=== PATIENT | female | born 1950 | race African-American/Black ===

== ENCOUNTER 2020-05-03 01:17 | Observation (INO) ==
[2020-05-03] MEDS ORDERED: PIPERACILLIN/TAZOBACTAM 3,375 MG in SODIUM CHLORIDE 0.9% 100 ML IV STA (01:28)
[2020-05-03 02:24] LABS: Basophils % 0.3 % (0.0-0.8); Eosinophils % 0.6 % (0.00-10.9); Hematocrit 44.3 VOL% (35.7-47.0); Hemoglobin 14.4 GM/DL (12.0-16.0); Immature Granulocytes % 0.2 %; Immature Granulocytes Absolute 0.01 #; Lymphocytes # 0.9 10*3/uL (1.4-4.0); Lymphocytes % 14.1 % (21.3-54.2); Mean Corpuscular HGB Conc 32.5 GM/DL (32-36); Mean Corpuscular Volume 97.4 FL (87-102); Mean Platelet Volume 9.5 FL (9.6-12.0); Neutrophils % 74.8 % (38.7-73.9); Platelet Count 195 T/CUMM (130-400); Red Blood Count 4.55 MC/CUMM (3.8-5.5); Red Cell Distribution Width 13.7 % (9.3-17.3); White Blood Count 6.6 T/CUMM (4-12)
[2020-05-03 03:01] LABS: Albumin 3.8 G/DL (3.4-5.0); Bilirubin,Total 0.4 MG/DL (0.2-1.0); Calcium 9.9 MG/DL (8.5-10.1); Osmolality,Calculated 274.8 MOS/KG (273-304); Potassium 3.3 MMOL/L (3.5-5.1); Total Protein 7.4 G/DL (6.4-8.3)
[2020-05-03] MEDS ORDERED: HYDROmorphone 2 MG/1 ML VIAL IV PRN (04:27)
[2020-05-03] MEDS ORDERED: ACETAMINOPHEN 325 MG TABLET PO PRN (04:27)
[2020-05-03] MEDS ORDERED: PIPERACILLIN/TAZOBACTAM 3,375 MG in SODIUM CHLORIDE 0.9% 100 ML IV SCH (04:27)
[2020-05-03] MEDS: ONDANSETRON 4 MG/2 ML VIAL IV PRN ×2 (09:22→21:21)
[2020-05-03] MEDS: SODIUM CHLORIDE 0.9% 1,000 ML IV SCH ×2 (10:48→15:04)
[2020-05-03] MEDS ORDERED: PIPERACILLIN/TAZOBACTAM 3,375 MG VIAL IV ONE ×2 (11:47→11:49)
[2020-05-03] MEDS: PANTOPRAZOLE 40 MG VIAL IV SCH (12:01)
[2020-05-03] MEDS: PIPERACILLIN/TAZOBACTAM 3,375 MG in SODIUM CHLORIDE 0.9% 100 ML IV SCH ×2 (12:01→21:41)
[2020-05-03] MEDS: POTASSIUM CHLORIDE RIDER 10 MEQ in PREMIX 1 EACH IV PRN ×2 (17:54→23:56)
[2020-05-04] MEDS: POTASSIUM CHLORIDE RIDER 10 MEQ in PREMIX 1 EACH IV PRN ×5 (00:56→17:45)
[2020-05-04] MEDS: PIPERACILLIN/TAZOBACTAM 3,375 MG in SODIUM CHLORIDE 0.9% 100 ML IV SCH ×3 (05:19→20:05)
[2020-05-04 05:20] LABS: Basophils # 0.1 10*3/uL (0.0-0.2); Basophils % 0.6 % (0.0-0.8); Eosinophils % 0.1 % (0.00-10.9); Hematocrit 41.9 VOL% (35.7-47.0); Hemoglobin 13.8 GM/DL (12.0-16.0); Immature Granulocytes % 0.2 %; Immature Granulocytes Absolute 0.02 #; Lymphocytes # 0.8 10*3/uL (1.4-4.0); Lymphocytes % 9.5 % (21.3-54.2); Mean Corpuscular HGB Conc 32.9 GM/DL (32-36); Mean Corpuscular Volume 96.8 FL (87-102); Mean Platelet Volume 10.2 FL (9.6-12.0); Monocytes % 10.3 % (1.7-12.7); Neutrophils % 79.3 % (38.7-73.9); Platelet Count 171 T/CUMM (130-400); Red Blood Count 4.33 MC/CUMM (3.8-5.5); White Blood Count 8.1 T/CUMM (4-12)
[2020-05-04] MEDS: ONDANSETRON 4 MG/2 ML VIAL IV PRN ×3 (05:20→19:48)
[2020-05-04 05:45] LABS: Albumin 3.6 G/DL (3.4-5.0); Bilirubin,Total 1.1 MG/DL (0.2-1.0); Calcium 9.8 MG/DL (8.5-10.1); Osmolality,Calculated 279.5 MOS/KG (273-304); Potassium 3.4 MMOL/L (3.5-5.1); Total Protein 7.5 G/DL (6.4-8.3)
[2020-05-04] MEDS: SODIUM CHLORIDE 0.9% 1,000 ML IV SCH ×3 (06:20→19:52)
[2020-05-04] MEDS: PANTOPRAZOLE 40 MG VIAL IV SCH (08:08)
[2020-05-05] MEDS: PIPERACILLIN/TAZOBACTAM 3,375 MG in SODIUM CHLORIDE 0.9% 100 ML IV SCH ×3 (07:20→20:19)
[2020-05-05] MEDS: SODIUM CHLORIDE 0.9% 1,000 ML IV SCH ×2 (07:54→11:01)
[2020-05-05] MEDS: PANTOPRAZOLE 40 MG VIAL IV SCH (09:08)
[2020-05-06] MEDS: PIPERACILLIN/TAZOBACTAM 3,375 MG in SODIUM CHLORIDE 0.9% 100 ML IV SCH ×3 (05:35→20:39)
[2020-05-06] MEDS: SODIUM CHLORIDE 0.9% 1,000 ML IV SCH ×3 (08:01→20:41)
[2020-05-06] MEDS: PANTOPRAZOLE 40 MG VIAL IV SCH (08:02)
[2020-05-07] MEDS: PIPERACILLIN/TAZOBACTAM 3,375 MG in SODIUM CHLORIDE 0.9% 100 ML IV SCH (04:37)
[2020-05-07 05:43] LABS: Basophils % 0.2 % (0.0-0.8); Eosinophils # 0.1 10*3/uL (0.0-0.87); Eosinophils % 1.2 % (0.00-10.9); Hematocrit 37.4 VOL% (35.7-47.0); Hemoglobin 11.9 GM/DL (12.0-16.0); Immature Granulocytes % 0.4 %; Immature Granulocytes Absolute 0.02 #; Lymphocytes # 0.8 10*3/uL (1.4-4.0); Lymphocytes % 16.7 % (21.3-54.2); Mean Corpuscular HGB Conc 31.8 GM/DL (32-36); Mean Corpuscular Volume 98.9 FL (87-102); Mean Platelet Volume 9.3 FL (9.6-12.0); Monocytes % 12.7 % (1.7-12.7); Neutrophils % 68.8 % (38.7-73.9); Platelet Count 149 T/CUMM (130-400); Red Blood Count 3.78 MC/CUMM (3.8-5.5); Red Cell Distribution Width 13.4 % (9.3-17.3)
[2020-05-07 06:05] LABS: Calcium 8.1 MG/DL (8.5-10.1); Osmolality,Calculated 278.3 MOS/KG (273-304)
[2020-05-07] MEDS: SODIUM CHLORIDE 0.9% 1,000 ML IV SCH (08:20)
[2020-05-07] MEDS: PANTOPRAZOLE 40 MG VIAL IV SCH (09:17)
[2020-05-07] MEDS ORDERED: POTASSIUM CHLORIDE INJ 50 MEQ in SODIUM CHLORIDE 0.9% 500 ML IV ONE (10:00)
[2020-05-07 15:58] VITALS: BP 126/82
== END 2020-05-07 20:18 | disposition home or self-care (01) ==
LOC: N.ED 01:17 → EDBD 01:17 → N.EDINP 01:17 → N.5E 13:43
PROVIDERS: ADMIT Surgery; ATTEND Surgery